=== PATIENT | male | born 1980 | race Caucasian/White ===

== ENCOUNTER 2019-07-14 15:18 | Emergency (ER) | payer BC, SELFPAY ==
[2019-07-14 15:19] VITALS: BP 134/84; PULSE 67; RESP 15; TEMP 36.6; O2SAT 99; BMI 23.1
--- NOTE | 2019-07-14 15:37 | ED.VISSUMM ---
- ER Visit Summary Date of Service: 07/14/19 Chief Complaint: Left ear complaint History of Present Illness: The patient is a 38 M who states that he gets an otitis media one time per year since he was a child. He has seen ENT and has had a scope. He states that for the past couple days he has had a runny nose and a bit of a cough. Now he notes muffled sounds and a bit of discomfort in the left ear. He states that last year he had a perforated tympanic membrane is not wishes to get to that point. No reported fevers or drainage from the ear. Physical Examination: Afebrile vital signs are stable Gen: Well-nourished well-developed Head: Normocephalic atraumatic Eyes: Perrl EOMI ENT: Right tympanic membrane appears normal. Left tympanic membrane demonstrates fluid behind the membrane. I still see landmarks. There is no erythema. Clear no rhinorrhea moist mucous membranes Neck: Supple no lymphadenopathy no JVD nontender CVS: Regular rate rhythm no murmurs normal S1-S2 Respiratory: No distress clear to auscultation bilaterally chest nontender Abdomen: Soft nontender nondistended normal bowel sounds no masses Back: Nontender Extremity: Nontender no edema Skin: Normal color no rash Neuro: alert orientated ?3 CN II-XII intact normal strength sensation reflexes gait cerebellar Psych: Normal affect normal mood Emergency Department Course and Treatment: We are going to employ a [id number] technique. I will write for prescription of Omnicef. Should his symptoms worsen he may fill it. He is comfortable with this plan and notes understanding. Impression: 1. Left serous otitis media This note was generated with [employer] dictation software. It may contain incorrect words, spelling, and punctuation that were not noted in review of the chart prior to signing ED Disposition - Plan for ED Patient: Disposition: Home or Assisted Living Instructions: SEROUS OTITIS MEDIA WITHOUT INFECTION [Child] Prescriptions: Cefdinir [Omnicef [equiv]] 300 mg PO Q12H #14 cap Prescription Printed Referrals: [facility] Doctor,Out of [Primary Care Provider] - As Needed
== END 2019-07-14 16:01 | disposition home or self-care (01) ==
LOC: ED 15:48
PROVIDERS: Emergency Provider Emergency Medicine
DX: H65.92 Unspecified nonsuppurative otitis media, left ear (principal)
CPT/HCPCS: 99282